=== PATIENT | female | born 1950 | race Caucasian/White ===

== ENCOUNTER → 2017-12-19 | Outpatient (CLI) | payer MEDICARE, OTHER ==
--- NOTE | 2017-12-19 15:25 | XR ---
Right shoulder HISTORY: Trauma 6 months prior, chronic right shoulder pain 3 views of the right shoulder No comparisons The right shoulder is high riding. There is some remodeling of the proximal right humerus and acromio n. Arthropathy present at the acromioclavicular joint. Right lung apex as visualized is normal. Bone mineralization within normal limits. No fracture or dislocation. IMPRESSION: There may be chronic rotator cuff tear. Shoulder MRI may be of benefit. Additional findin gs above.
== END | disposition home or self-care (01) ==
LOC: RADXRYALE 11:02
PROVIDERS: ATTEND Family Medicine
DX: M12.811 Other specific arthropathies, not elsewhere classified, right shoulder (principal)

== ENCOUNTER → 2022-03-08 | Outpatient (CLI) | payer MEDICARE, OTHER ==
--- NOTE | 2022-03-09 19:56 | MM ---
Reason for Exam: Screening (asymptomatic). Last screening mammogram was performed 12 month(s) ago. Patient History: Menarche at age 14. First Full-Term at age 21. Left ovary removed at age 37. Right ovary removed at age 37. Hysterectomy at age 37. Postmenopausal. MG pre op needle loc LT - 2 on the Left side. MG pre op needle loc LT - 2 on the Left side. Risk Values: Stephenie 5 year model risk: 1.9%. NCI Lifetime model risk: 5.5%. Prior Study Comparison: 12/10/2018 Bilateral MG screening mammo w CAD - 2, [facility]. 03/08/2021 Bilateral MG screening mammo w CAD - 2, [facility]. Tissue Density: There are scattered fibroglandular densities. Findings: Analyzed By CAD. There is no suspicious group of microcalcifications or new suspicious mass in either breast. Overall Assessment: Negative, BI-RAD 1 Management: Screening Mammogram of both breasts in 1 year. 1. Patient should continue monthly self breast exams. 2. A clinical breast exam by your physician is recommended on an annual basis. 3. This exam should not preclude additional follow-up of suspicious palpable abnormalities. Electronically signed and approved by: Willi Bazan M.D. Radiologist
== END | disposition home or self-care (01) ==
LOC: RADMAMWWP 11:14
PROVIDERS: ATTEND Family Medicine
DX: Z12.31 Encounter for screening mammogram for malignant neoplasm of breast (principal)
CPT/HCPCS: 77063; 77067

== ENCOUNTER → 2022-11-22 | Outpatient (CLI) | payer MEDICARE, OTHER ==
--- NOTE | 2022-11-22 07:52 | MR ---
EXAMINATION TYPE: MR brain wo/w con DATE OF EXAM: 11/22/2022 7:12 AM CLINICAL INDICATION:Female, 72 years old with history of R42 DIZZINESS,H81.12,H93.12; Dizziness, uns teady gait. COMPARISON: None TECHNIQUE: Multi planar, multi sequence imaging was performed through the brain including: T1, T2, In version recovery, susceptibility weighted imaging and gradient echo imaging and Diffusion weighted im aging. The patient was then given intravenous contrast and multi planar, T1 fat-saturation images wer e obtained. IV Contrast: 10 cc Gadavist FINDINGS: The beckman-white junctions, ventricular system, basal cisterns appear unremarkable. Diffusion-weighted imaging shows no evidence of restricted diffusion to suggest acute/subacute infarct. Intracranial art erial flow voids are maintained. Midline structures show no abnormality. The susceptibility weighted images do not reveal any evidence for micro-hemorrhage. After administration of gadolinium, no abnorm al enhancement is seen. The bone marrow signal is within normal limits. Paranasal sinuses and mastoid air cells: No significant paranasal sinus disease. Visualized orbits: Orbital contents are intact. C5-C6 spinal canal disc protrusion with moderate to severe spinal canal stenosis. IMPRESSION: 1. C5-C6 spinal canal disc herniation with moderate to severe spinal canal stenosis. Further evaluat ion MRI cervical spine recommended. 2. No evidence of intracranial mass, acute/subacute infarct, or abnormal enhancement.
== END | disposition home or self-care (01) ==
LOC: RADMRIMAIN 06:18
PROVIDERS: ATTEND Family Medicine
DX: M50.222 Other cervical disc displacement at C5-C6 level (principal); H81.12 Benign paroxysmal vertigo, left ear; H93.12 Tinnitus, left ear; M99.71 Connective tissue and disc stenosis of intervertebral foramina of cervical region
CPT/HCPCS: 70553; A9585

== ENCOUNTER → 2022-11-23 | Outpatient (CLI) | payer MEDICARE, OTHER ==
--- NOTE | 2022-11-23 13:57 | US ---
EXAMINATION TYPE: US carotid duplex BILAT DATE OF EXAM: 11/23/2022 COMPARISON: MR CLINICAL INDICATION: Female, 72 years old with history of R42 DIZZINESS, H81.12 VERTIGO; Dizziness, v ertigo per order. TECHNIQUE: Carotid duplex ultrasound examination. Indirect Doppler criteria was utilized. 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 Intimal thickening seen bilateral carotid art eries. IMPRESSION: Mild intimal thickening present bilaterally without significant flow-limiting stenosis based on veloc ities. Criteria for Assigning % of Stenosis / Diameter reduction (Estimation based on the indirect measurements of the internal carotid artery velocities (ICA PSV). 1. Normal (no stenosis)=ICA PSV < 125 cm/s: ratio < 2.0: ICA EDV<40 cm/s. 2. Less than 50% stenosis=ICA PSV < 125 cm/s: ratio < 2.0: ICA EDV<40 cm/s. 3. 50 to 69% stenosis=ICA PSV of 125 to 230 cm/s: ration 2.0 ? 4.0: ICA EDV 40-100 cm/s. 4. Greater than 70% stenosis to near occlusion= ICA PSV > 230 cm/s: ratio > 4.0: ICA EDV > 100 cm/s. 5. Near occlusion= ICA PSV velocities may be low or undetectable: variable ratio and ICA EDV. 6. Total occlusion=unable to detect flow.
--- NOTE | 2022-11-23 14:06 | US ---
IMPRESSION: LOWER EXTREMITY VENOUS INSUFFICIENCY CLINICAL INDICATION: Female, 72 years old with history of R2242, Swelling, I872 venous insufficiency; Venous insufficiency. Swelling, pain in both legs, worse on the right. Hx DVT in 2005. Patient takes aspiring. Hx of bilateral knee replacement. SIDE PERFORMED: Bilateral 1) Color flow is present and patency is documented in the following vessels. No DVT or SVT is noted . Common Femoral Vein Deep Femoral Vein Femoral Vein Popliteal Vein Proximal Calf Veins Greater Saph Vein Upper Small Saph Vein 2) There is venous reflux noted at the following venous levels: *Right CFV, right femoral vein prox, right femoral vein mid, right femoral vein distal, proximal righ t popliteal vein, distal right popliteal vein. *Left CFV and left GSV. IMPRESSION: 1. Venous reflux on the left common femoral and greater saphenous vein. 2. Venous reflux right common femoral, proximal mid and distal femoral vein proximal and distal right popliteal vein.
--- NOTE | 2022-11-24 06:33 | US ---
EXAMINATION TYPE: US arterial LE single level DATE OF EXAM: 11/23/2022 11:52 AM CLINICAL INDICATION: Female, 72 years old with history of M79.661 PAIN RT LOWER LIMB,M79.662 PAIN LT LOWER LIMB; Pain in both legs. History of: Smoker: No Hypertension: No Diabetic: No Hyperlipidemia: Yes TIA/CVA: No Previous Vascular Surgery: No CAD: No MA: No Vascular Ulcers: No Claudication: No Gangrene: No Doppler Waveforms: Right: Biphasic Left: Biphasic Right Brachial Pressure: 171 Left Brachial Pressure: 161 Ankle-Brachial Indices: Right: 1.01 Left: 1.02 Toe Brachial Indices: Right: 0.70 Left: 0.67 IMPRESSION: Normal study.
== END | disposition home or self-care (01) ==
LOC: RADUSWWP 10:10
PROVIDERS: ATTEND Family Medicine
DX: I65.23 Occlusion and stenosis of bilateral carotid arteries (principal); R42 Dizziness and giddiness; M79.661 Pain in right lower leg; M79.662 Pain in left lower leg
CPT/HCPCS: 93880; 93922; 93970

== ENCOUNTER → 2023-06-17 | Outpatient (CLI) | payer MEDICARE, OTHER ==
--- NOTE | 2023-06-17 13:57 | MR ---
EXAMINATION TYPE: MR cervical spine wo/w con DATE OF EXAM: 06/17/2023 11:43 AM CLINICAL INDICATION:Female, 73 years old with history of M48.02 SPINAL STENOSIS CERVICAL REGION; Vert igo, loss of balance, Bilat shoulder pain, Numbness finger tips of right hand COMPARISON: None. TECHNIQUE: Multi planar, multi sequence imaging was performed utilizing: T1-weighted, T2-weighted, an d turbo inversion recovery imaging of the cervical spine. IV Contrast: 9 cc Gadavist (none if empty) FINDINGS: Alignment: The cervical vertebral bodies have preserved heights. Alignment is within normal limits gi erick patient positioning. Grade 1 anterolisthesis of C4 on C5 and C5 on C6. Bones: Degeneration changes throughout the spine with disc space narrowing osteophyte formation prese nt. Uncovertebral and facet joint arthropathy are also present. No abnormal postcontrast enhancement. Cord: The spinal cord is unremarkable with regards to their signal intensity and morphology. No abnor mal postcontrast enhancement. Discs: Multilevel disc desiccation is present. C2-C3: No significant disc pathology. The spinal canal is patent. Bilateral facet and uncovertebral joint arthropathy are present with mild bilateral neural foraminal stenosis. C3-C4: A disc osteophyte complex is present with mild spinal canal stenosis. Bilateral facet and unc overtebral joint arthropathy are present with severe bilateral neural foraminal stenosis. C4-C5: A disc osteophyte complex is present with severe spinal canal stenosis. Bilateral facet and u ncovertebral joint arthropathy are present with moderate bilateral neural foraminal stenosis. C5-C6: A disc osteophyte complex is present with severe spinal canal stenosis. Bilateral facet and u ncovertebral joint arthropathy are present with moderate to severe bilateral neural foraminal stenosi s. C6-C7: A disc osteophyte complex is present with moderate to severe spinal canal stenosis. Bilateral facet and uncovertebral joint arthropathy are present with moderate to severe bilateral neural bette inal stenosis. C7-T1: A disc osteophyte complex is present with mild spinal canal stenosis. Bilateral facet and unc overtebral joint arthropathy are present with moderate mild to moderate bilateral neural foraminal st enosis. Other: None. IMPRESSION: 1. C4-C5 and C5-C6 severe and C6-C7 moderate to severe spinal canal stenosis. Cord signal is maintain ed. 2. Moderate to severe disc degeneration with associated osteoarthritic changes. Multilevel neural for aminal stenosis as described above. 3. Grade 1 anterolisthesis of C4 on C5 and C5 on C6. 4. No abnormal postcontrast enhancement.
== END | disposition home or self-care (01) ==
LOC: RADMRIMAIN 10:45
PROVIDERS: ATTEND Otolaryngology
DX: M48.02 Spinal stenosis, cervical region (principal); M43.12 Spondylolisthesis, cervical region; M99.71 Connective tissue and disc stenosis of intervertebral foramina of cervical region; M50.31 Other cervical disc degeneration, high cervical region; M47.812 Spondylosis without myelopathy or radiculopathy, cervical region
CPT/HCPCS: 72156; A9585

== ENCOUNTER → 2024-03-15 | Outpatient (CLI) | payer MEDICARE, OTHER ==
--- NOTE | 2024-04-09 11:45 | MM ---
Reason for Exam: Screening (asymptomatic). Last mammogram was performed 2 year(s) and 0 month(s) ago. Patient History: Menarche at age 14. First Full-Term at age 21. Left ovary removed at age 37. Right ovary removed at age 37. Hysterectomy at age 37. Postmenopausal. MG pre op needle loc LT - 2 on the Left side. MG pre op needle loc LT - 2 on the Left side. Risk Values: Stephenie 5 year model risk: 1.9%. NCI Lifetime model risk: 5.0%. Prior Study Comparison: 12/10/2018 Bilateral MG screening mammo w CAD - 2, [facility]. 03/08/2021 Bilateral MG screening mammo w CAD - 2, [facility]. 03/08/2022 Bilateral MG 3D screening mammo w/cad, [facility]. Tissue Density: There are scattered areas of fibroglandular density. Findings: Analyzed By CAD. Right breast: There is no suspicious group of microcalcifications or new suspicious mass. Left breast: There is no suspicious group of microcalcifications or new suspicious mass. Overall Assessment: Negative, BI-RAD 1 Management: Screening Mammogram of both breasts in [address] [facility] will attempt to contact patient to return for supplemental views and ultrasound if indicated. Patient should continue monthly self-breast exams. A clinical breast exam by your physician is recommended on an annual basis. This exam should not preclude additional follow-up of suspicious palpable abnormalities. Note on Stephenie scores and lifetime risk: 1. A Stephenie score greater than 3% is considered moderate risk. If this is the case, consider specialist referral to assess eligibility for a risk reducing agent. 2. If overall lifetime risk for the development of breast cancer is 20% or higher, the patient may qualify for future screening with alternating mammogram and breast MRI. Electronically signed and approved by: Jak Silverman DO
== END | disposition home or self-care (01) ==
LOC: RADMAMWWP 12:00
PROVIDERS: ATTEND Family Medicine
DX: Z12.31 Encounter for screening mammogram for malignant neoplasm of breast (principal); Z78.0 Asymptomatic menopausal state; R92.323 Mammographic fibroglandular density, bilateral breasts
CPT/HCPCS: 77063; 77067

== ENCOUNTER → 2024-10-25 | Outpatient (CLI) | payer MEDICARE, OTHER ==
--- NOTE | 2024-10-26 07:14 | MR ---
MRI CERVICAL SPINE: CLINICAL HISTORY: Cervicalgia. History of surgery. Neck pain and stiff neck into shoulders. TECHNIQUE: Multiplanar, multisequence imaging of the cervical spine is performed without and with IV contrast, 7 cc of gadolinium was given intravenously. COMPARISON: Prior MRI June 17, 2023. FINDINGS: Sagittal images of the cervical spine show the craniocervical junction to remain within nor mal limits. The cervical and upper thoracic spinal cord shows some diminished AP diameter or volume loss centered at C7-T1 level sagittal image 9. Extensive interval surgical change with artifact from large fusion device running from C4 through C6 to C7 disc space level. Posterior resection with jarek fact from posterior fusion hardware running from C2 through the T1 levels is now seen. There is widen ing of the spinal canal at mid cervical levels with anterior positioning of the interpolar vertebral device at this level relative to the posterior margin of C6 vertebra. The vertebral body and intrave rtebral disk heights are normal below C6 level. The bone marrow signal intensity is within normal li mits. No suspicious postcontrast enhancement is seen. Axial images are degraded by susceptibility artifact. Mild left-sided neural foraminal narrowing at C 2-C3 level remains present. Axial images at C3-C4 level show moderate left-sided neural foraminal yesi rowing. Axial images at C4-C5 and C5-C6 levels show successful decompression of spinal canal stenosis with im proved anterior spinal canal CSF. Mild bilateral neural foraminal narrowing at C5-C6 level is now see n. Axial images at C6-C7 level shows right-sided paracentral bony projection or disc herniation effaces the anterior thecal sac of the ventral surface of spinal cord on axial images was well seen on sagitt al images similar to prior. Bilateral neural foramina are patent. Axial images at C7-T1 and T1-T2 levels are markedly suboptimal due to extensive susceptibility artifa ct. IMPRESSION: Interval extensive surgical change to the cervical spine with satisfactory decompression of the spinal canal stenosis at mid cervical levels. Suspect some chronic cord atrophy at C7-T1 level . Other findings are noted as detailed above. [facility], , 10/26/2024 7:12 AM
== END | disposition home or self-care (01) ==
LOC: RADMRIMAIN 16:04
PROVIDERS: ATTEND Family Medicine
DX: M48.02 Spinal stenosis, cervical region (principal); M47.13 Other spondylosis with myelopathy, cervicothoracic region; M99.71 Connective tissue and disc stenosis of intervertebral foramina of cervical region
CPT/HCPCS: 72156; A9585

== ENCOUNTER → 2024-11-27 | Outpatient (CLI) | payer MEDICARE, OTHER ==
--- NOTE | 2024-11-28 09:40 | MR ---
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 COMPARISON: MR cervical spine 10/25/2024, 06/17/2023. TECHNIQUE: Multi planar, multi sequence imaging was performed utilizing: T1-weighted, T2-weighted, an d turbo inversion recovery imaging of the thoracic spine. The patient was not given Gadolinium. FINDINGS: Postsurgical changes of anterior cervical fusion and posterior cervical decompression. The thoracic vertebral bodies have preserved heights and alignment. T1/T2 hyperintense foci within th e T4, T5, and T12 vertebral bodies likely related to vertebral hemangiomas. T2 hyperintense/T1 hypoin tense with increased STIR signal involving a L1 vertebral body lesion. May also represent an atypical hemangioma. Multilevel anterior osteophytosis. Multilevel disc desiccation. Central disc protrusion at C7-T1 with mild effacement of the anterior thecal sac. Susceptibility jarek fact from fusion with evaluation for neural foraminal stenosis. No gross evidence of neural foraminal stenosis. Central disc protrusion at T7-T8 with minimal effacement of the anterior thecal sac. No significant c entral canal stenosis. No neural foraminal stenosis. Central disc protrusion with cranial migration approximately 4 mm at T8-T9. There is mild effacement of the anterior thecal sac. No significant central canal stenosis. No neural foraminal stenosis. Central disc protrusion with cranial migration approximately 4 mm at T9-T10. There is mild effacement of the anterior thecal sac. No significant central canal stenosis. No neural foraminal stenosis. Minimal broad-based disc bulge at T10-T11 without significant effacement of the anterior thecal sac. No central canal stenosis. Mild left neural foraminal stenosis. The right neural foramen is patent. Mild broad-based disc bulge at T11-T12 with mild effacement of the anterior thecal sac. Mild central canal stenosis. Mild bilateral neural foraminal stenosis. No other significant central canal or neural from stenosis of the thoracic spine. Broad-based disc bulge with ligamentum flavum buckling resulting in moderate central canal stenosis a t T12-L1. No neural foraminal stenosis. Broad-based disc bulge with ligamentum flavum buckling at L1-L2 resulting in mild to moderate central canal stenosis. Mild bilateral neural foramina stenosis. Broad-based disc bulge with ligamentum flavum buckling resulting in [id number] central canal st enosis at L2-L3. Bilateral facet arthropathy. Moderate left and mild right neural foraminal stenosis. IMPRESSION: Mild to moderate multilevel degenerative disc disease of the visualized spine as described above. Mos t pronounced involving the visualized upper lumbar spine. Consider further evaluation with MRI lumbar spine as clinically indicated. [facility], , 11/28/2024 9:38 AM
== END | disposition home or self-care (01) ==
LOC: RADMRIMAIN 13:54
PROVIDERS: ATTEND Neurological Surgery
DX: M51.04 Intervertebral disc disorders with myelopathy, thoracic region (principal); M47.14 Other spondylosis with myelopathy, thoracic region
CPT/HCPCS: 72146